=== PATIENT | female | born 1975 | race Hispanic/Latino ===

== ENCOUNTER 2019-02-10 14:12 | Inpatient (IN) | payer SELFPAY ==
[2019-02-10] MEDS ORDERED: Sodium Chloride 0.9% 1000 ML 1,000 ML IV STA ×3 (14:46→20:41)
[2019-02-10 15:12] LABS: BASOPHIL % 0.1 % (0.0-0.4); Basophil (Absolute #) 0.02 (0-0.4); Eosinophil % 0.1 % (0.00-5.0); Eosinophil (Absolute #) 0.02 (0-0.5); Granulocyte Absolute (ANC) 17.09 (1.4-6.9); Granulocytes % 87.5 % (36.0-66.0); Hemoglobin 14.8 gm/dl (12.0-16.0); Lymphocyte (Absolute #) 1.19 (1.0-4.6); Lymphocytes % 6.1 % (24.0-44.0); Mean Corpuscular Hgb Concent. 34.4 g/dl (32-36); Monocyte (Absolute #) 1.22 (0.0-1.3); Monocytes % 6.2 % (0.0-12.0); Platelet Count 185 K/mm3 (150-450); Red Blood Count 4.94 M/mm3 (4.1-5.4); Red Cell Distribution Width 12.8 % (11.5-14.0); White Blood Count 19.5 K/mm3 (4.0-10.5)
[2019-02-10] MEDS ORDERED: Sodium Chloride 0.9% 1000 ML 1,000 ML ONE ×2 (15:18→16:08)
[2019-02-10 15:30] LABS: Appearance SLIGHTLY CLOUDY (CLEAR); Bacteria RARE /HPF (NEGATIVE); Bilirubin NEGATIVE (NEGATIVE); Blood SMALL Ery/ul (0-5); Epithelial Cells RARE /HPF (FEW); Glucose >=500 mg/dL (NEGATIVE); Ketones NEGATIVE (NEGATIVE); Leukocyte Esterase MODERATE (NEGATIVE); Mucus SLIGHT /HPF (NEGATIVE); Nitrite NEGATIVE (NEGATIVE); Non-Squamous Epithelial Cells RARE /HPF (FEW); Protein,Urine Dip 100 (Negative); Specific Gravity 1.012 (1.005-1.025); Urobilinogen 2 mg/dL (0-1); WBC 26-50 /HPF (0-5)
[2019-02-10 15:41] LABS: ALBUMIN 4.4 g/dL (3.5-5.0); ALKALINE PHOSPHATASE 155 U/L (38-126); ANION GAP 15.6 MEQ/L (5-15); BLOOD UREA NITROGEN 13 mg/dL (7-17); CHLORIDE 103 mmol/L (98-107); Calcium 9.5 mg/dL (8.4-10.2); Carbon Dioxide 25 mmol/L (22-30); Creatinine 1 0.96 mg/dL (0.52-1.04); Glucose 213 mg/dL (74-106); MAGNESIUM 1.7 mg/dL (1.6-2.3); Potassium 3.6 mmol/L (3.5-5.1); SGOT/AST 62 U/L (14-36); SGPT/ALT 47 U/L (0-35); SODIUM 140 mmol/L (137-145); Total Protein 8.7 g/dL (6.3-8.2)
[2019-02-10] MEDS ORDERED: ROCEPHIN 1 Gm-D5w 50 ml Bag** 1 G/50 ML IVPB IV STA (16:07)
[2019-02-10] MEDS ORDERED: ROCEPHIN 1 Gm-D5w 50 ml Bag** 1 G/50 ML IVPB IV ONE (16:08)
[2019-02-10] MEDS ORDERED: TYLENOL EXTRA STRENGTH 500 MG PO STA (18:05)
[2019-02-10] MEDS ORDERED: TYLENOL EXTRA STRENGTH 500 MG ONE (18:09)
--- NOTE | 2019-02-10 18:21 | ERPHSYRPT ---
- History of Present Illness Source: patient Exam Limitations: language barrier Patient Subjective Stated Complaint: pt reports fever, headache, and feeling "shakey" for the last few days. pt reports she is out of her blood pressure medication as well as her oral medication for diabetes. Triage Nursing Assessment: pt is aox3, pupils perrl, febrile, resps easy and non labored, radial pulses strong and equal, cap refill < 3 seconds, pt appears diaphoretic. Physician History: Pt is a 43 y/o female that presented to the ED complaining of diaphoresis. Pt states, had subjective fever, but did not check how high it was. Pt states, was urinating several times at night, but denies dysuria. Pt denies diarrhea, but she did have vomiting episodes. No SOB or cough. Pt has a h/o HTN and DM II, but she did not have any meds for the last two months, and she has no PCP here. Timing/Duration: day(s) Severity: moderate Associated Symptoms: nausea, vomiting, diaphoresis, chills Allergies/Adverse Reactions: No Known Drug Allergies Allergy (Unverified 02/10/19 14:21) Hx Tetanus, Diphtheria Vaccination/Date Given: (unk) Hx Influenza Vaccination/Date Given: (unk) Hx Pneumococcal Vaccination/Date Given: (unk) Immunizations Up to Date: (unk) - Review of Systems Constitutional: Fever, Chills, Malaise, Night Sweats Eyes: No Symptoms Ears, Nose, & Throat: No Symptoms Respiratory: No Cough, No Dyspnea Abdominal/Gastrointestinal: Nausea, Vomiting Genitourinary Symptoms: Frequency Musculoskeletal: No Back Pain, No Neck Pain Neurological: No Dizziness, No Focal Weakness, No Sensory Changes - Past Medical History Pertinent Past Medical History: Yes Cardiac History: Hypertension Endocrine Medical History: Diabetes Type II GI Medical History: Gallbladder Disease - Past Surgical History Past Surgical History: Yes Gastrointestinal: Cholecystectomy Female Surgical History: Section - Social History Smoking Status: Never smoker Drug Use: none Patient Lives Alone: No - Female History Hx Now: No - Nursing Vital Signs Nursing Vital Signs: Initial Vital Signs Temperature 101 F 02/10/19 14:15 Pulse Rate 118 H 02/10/19 14:15 Respiratory Rate 20 02/10/19 14:15 Blood Pressure 141/122 02/10/19 14:15 O2 Sat by Pulse Oximetry 95 02/10/19 14:15 Pain Scale Pain Intensity 9 - Physical Exam General Appearance: moderate distress Eye Exam: PERRL/EOMI, eyes nml inspection Ears, Nose, Throat Exam: normal ENT inspection, TMs normal, pharynx normal, moist mucous membranes Neck Exam: normal inspection, non-tender, supple, full range of motion Respiratory Exam: normal breath sounds, lungs clear, No respiratory distress Cardiovascular Exam: regular rate/rhythm, normal heart sounds, normal peripheral pulses Gastrointestinal/Abdomen Exam: soft, normal bowel sounds, No tenderness, No mass Back Exam: normal inspection, normal range of motion, No CVA tenderness, No vertebral tenderness Extremity Exam: normal inspection, normal range of motion, pelvis stable Neurologic Exam: alert, oriented x 3, cooperative, normal mood/affect, nml cerebellar function, nml station & gait, sensation nml, No motor deficits Skin Exam: normal color, warm, dry, No rash SpO2 Interpretation: normal SpO2: 98 O2 Delivery: Room Air - Course Nursing assessment & vital signs reviewed: Yes - CT Exams Chest CT Interpretation: Tele-radiologist Report (No focal infiltrate. LAD calcifications, subsegmental atelectasis.) Ordered Tests: Active Orders 24 hr Category Date Time Status EKG-ER Only STAT Care 02/10/19 14:46 Active IV Insertion STAT Care 02/10/19 14:46 Active IV Insertion-2nd Peripheral STAT Care 02/10/19 16:18 Active CHEST 2 VIEWS (PA AND LAT) Stat Exams 02/10/19 16:49 Taken CHEST WITHOUT CONTRAST [CT] Stat Exams 02/10/19 16:07 Taken CBC W DIFF Stat Lab 02/10/19 15:09 Completed CMP Stat Lab 02/10/19 15:09 Completed CULTURE,URINE Stat Lab 02/10/19 15:09 Received Lactic Acid Urgent Lab 02/10/19 14:46 Completed MAGNESIUM Stat Lab 02/10/19 15:09 Completed TROPONIN Q3H Lab 02/10/19 15:09 Completed TROPONIN Q3H Lab 02/10/19 18:00 Ordered TROPONIN Q3H Lab 02/10/19 21:00 Ordered UA W/RFX UR CULTURE Stat Lab 02/10/19 15:09 Completed Medication Summary Discontinued Medications Generic Name Dose Route Start Last Admin Trade Name Freq PRN Reason Stop Dose Admin Acetaminophen 1,000 mg 02/10/19 18:05 02/10/19 18:10 Tylenol Extra Strength 500 Mg PO 02/10/19 18:06 1,000 mg STAT STA Administration Acetaminophen Confirm 02/10/19 18:09 Tylenol Extra Strength 500 Mg Administered 02/10/19 18:10 Dose 1,000 mg .ROUTE .STK-MED ONE Sodium Chloride 1,000 mls @ 999 mls/hr 02/10/19 14:46 02/10/19 16:25 Sodium Chloride 0.9% 1000 Ml IV 02/10/19 15:46 Infused .Q1H1M STA Infusion Sodium Chloride Confirm 02/10/19 15:18 Sodium Chloride 0.9% 1000 Ml Administered 02/10/19 15:19 Dose 1,000 mls @ ud .ROUTE .STK-MED ONE Ceftriaxone Sodium/Dextrose 1 g in 50 mls @ 100 mls/hr 02/10/19 16:07 16:50 Rocephin 1 Gm-D5w 50 Ml Bag IV 02/10/19 16:36 Infused STAT STA Infusion Sodium Chloride Confirm 02/10/19 16:08 Sodium Chloride 0.9% 1000 Ml Administered 02/10/19 16:09 Dose 1,000 mls @ ud .ROUTE .STK-MED ONE Ceftriaxone Sodium/Dextrose Confirm 02/10/19 16:08 Rocephin 1 Gm-D5w 50 Ml Bag Administered 02/10/19 16:09 Dose 1 g in 50 mls @ ud IV .STK-MED ONE Sodium Chloride 1,000 mls @ 999 mls/hr 02/10/19 16:25 02/10/19 17:43 Sodium Chloride 0.9% 1000 Ml IV 02/10/19 17:25 Infused .Q1H1M STA Infusion Lab/Rad Data: Laboratory Result Diagrams 02/10/19 15:09 02/10/19 15:09 Laboratory Results 02/10/19 02/10/19 02/10/19 Range/Units 15:09 15:09 15:09 WBC (4.0-10.5) K/mm3 RBC (4.1-5.4) M/mm3 Hgb (12.0-16.0) gm/dl Hct (35-47) % MCV (78-100) fl MCH (26-32) pg MCHC (32-36) g/dl RDW (11.5-14.0) % Plt Count (150-450) K/mm3 MPV (6-9.5) fl Gran % (36.0-66.0) % Eos # (Auto) (0-0.5) Absolute Lymphs (auto) (1.0-4.6) Absolute Monos (auto) (0.0-1.3) Lymphocytes % (24.0-44.0) % Monocytes % (0.0-12.0) % Eosinophils % (0.00-5.0) % Basophils % (0.0-0.4) % Absolute Granulocytes (1.4-6.9) Basophils # (0-0.4) Sodium 140 (137-145) mmol/L Potassium 3.6 (3.5-5.1) mmol/L Chloride 103 (98-107) mmol/L Carbon Dioxide 25 (22-30) mmol/L Anion Gap 15.6 H (5-15) MEQ/L BUN 13 (7-17) mg/dL Creatinine 0.96 (0.52-1.04) mg/dL Estimated GFR > 60.0 ML/MIN Glucose 213 H (74-106) mg/dL Lactic Acid (0.4-2.0) Calcium 9.5 (8.4-10.2) mg/dL Magnesium 1.7 (1.6-2.3) mg/dL Total Bilirubin 0.90 (0.2-1.3) mg/dL AST 62 H (14-36) U/L ALT 47 H (0-35) U/L Alkaline Phosphatase 155 H (38-126) U/L Troponin I < 0.012 (0.000-0.034) ng/mL Serum Total Protein 8.7 H (6.3-8.2) g/dL Albumin 4.4 (3.5-5.0) g/dL Urine Color YELLOW (YELLOW) Urine Appearance SLIGHTLY CLOUDY (CLEAR) Urine pH 7.0 (5-6) Ur Specific [place] 1.012 (1.005-1.025) Urine Protein 100 (Negative) Urine Ketones NEGATIVE (NEGATIVE) Urine Blood SMALL (0-5) Albert/ul Urine Nitrite NEGATIVE (NEGATIVE) Urine Bilirubin NEGATIVE (NEGATIVE) Urine Urobilinogen 2 (0-1) mg/dL Ur Leukocyte Esterase MODERATE (NEGATIVE) Urine WBC (Auto) 26-50 (0-5) /HPF Urine RBC (Auto) 3-5 (0-2) /HPF U Epithel Cells (Auto) RARE (FEW) /HPF Urine Bacteria (Auto) RARE (NEGATIVE) /HPF U Non-Squamous Epi Cells RARE (FEW) /HPF Other Casts (Auto) NEGATIVE (NEGATIVE) /LPF Urine Mucus (Auto) SLIGHT (NEGATIVE) /HPF Urine Culture Reflexed ORDERED SEPARATELY (NO) Urine Glucose >=500 (NEGATIVE) mg/dL 02/10/19 02/10/19 Range/Units 15:09 14:46 WBC 19.5 H (4.0-10.5) K/mm3 RBC 4.94 (4.1-5.4) M/mm3 Hgb 14.8 (12.0-16.0) gm/dl Hct 43.0 (35-47) % MCV 87.0 (78-100) fl MCH 30.0 (26-32) pg MCHC 34.4 (32-36) g/dl RDW 12.8 (11.5-14.0) % Plt Count 185 (150-450) K/mm3 MPV 13.0 H (6-9.5) fl Gran % 87.5 H (36.0-66.0) % Eos # (Auto) 0.02 (0-0.5) Absolute Lymphs (auto) 1.19 (1.0-4.6) Absolute Monos (auto) 1.22 (0.0-1.3) Lymphocytes % 6.1 L (24.0-44.0) % Monocytes % 6.2 (0.0-12.0) % Eosinophils % 0.1 (0.00-5.0) % Basophils % 0.1 (0.0-0.4) % Absolute Granulocytes 17.09 H (1.4-6.9) Basophils # 0.02 (0-0.4) Sodium (137-145) mmol/L Potassium (3.5-5.1) mmol/L Chloride (98-107) mmol/L Carbon Dioxide (22-30) mmol/L Anion Gap (5-15) MEQ/L BUN (7-17) mg/dL Creatinine (0.52-1.04) mg/dL Estimated GFR ML/MIN Glucose (74-106) mg/dL Lactic Acid 1.6 (0.4-2.0) Calcium (8.4-10.2) mg/dL Magnesium (1.6-2.3) mg/dL Total Bilirubin (0.2-1.3) mg/dL AST (14-36) U/L ALT (0-35) U/L Alkaline Phosphatase (38-126) U/L Troponin I (0.000-0.034) ng/mL Serum Total Protein (6.3-8.2) g/dL Albumin (3.5-5.0) g/dL Urine Color (YELLOW) Urine Appearance (CLEAR) Urine pH (5-6) Ur Specific [place] (1.005-1.025) Urine Protein (Negative) Urine Ketones (NEGATIVE) Urine Blood (0-5) Albert/ul Urine Nitrite (NEGATIVE) Urine Bilirubin (NEGATIVE) Urine Urobilinogen (0-1) mg/dL Ur Leukocyte Esterase (NEGATIVE) Urine WBC (Auto) (0-5) /HPF Urine RBC (Auto) (0-2) /HPF U Epithel Cells (Auto) (FEW) /HPF Urine Bacteria (Auto) (NEGATIVE) /HPF U Non-Squamous Epi Cells (FEW) /HPF Other Casts (Auto) (NEGATIVE) /LPF Urine Mucus (Auto) (NEGATIVE) /HPF Urine Culture Reflexed (NO) Urine Glucose (NEGATIVE) mg/dL - Progress Progress: improved Progress Note: 02/10/19 18:25 Pt was seen and examined. She had elevated WBCs of 19.5. and urine moderate leukocyte esterase and rare bacteria. Pt's BP dropped during her stay in the ER , and two liters of IVF given, just to get her to the SBPs of 100s. Lactate was normal. Pt got Ceftriaxone for her UTI. Pt got fed to see if she can tolerate it with no vomiting. Pt was discussed with Dr Estrella, that accepted pt to the ICU for admission, with hypotension. 02/10/19 18:38 Discussed with : Hunter Will see patient in: hospital (full admit) - Departure Departure Disposition: In-patient Admission Clinical Impression: Sepsis Condition: Fair Critical Care Time: No Referrals: Provider,Unknown [Primary Care Provider] - Additional Instructions: Pt will be admitted to the ICU for sepsis, and UTI. Dr Estrella is accepting.
[2019-02-10] MEDS ORDERED: NovoLOG Insulin SQ PRN (18:41)
[2019-02-10] MEDS ORDERED: Zofran 4 MG/2 ML VIAL IV PRN (18:41)
--- NOTE | 2019-02-10 19:31 | XRAY ---
Indication: Fever. Comparison: None PA/lateral chest demonstrates normal heart and lungs. Bony thorax intact with mild degenerative changes.
--- NOTE | 2019-02-10 19:31 | XRAY ---
Indication: Short of breath. Multiple contiguous axial images obtained through the chest without contrast as ordered. Comparison: None Lungs demonstrates minimal bilateral dependent atelectasis and minimal lingula subsegmental atelectasis/scarring. No suspicious pulmonary mass, infiltrate, consolidation, or effusion. Heart is not enlarged. Aorta is normal in course and caliber. No pathologic mediastinal lymphadenopathy. Bony thorax intact with mild degenerative changes throughout the spine. Limited upper abdomen demonstrates mild fatty liver. Impression: 1. Scattered atelectasis/scarring. No acute cardiopulmonary abnormalities on this noncontrast exam. 2. Fatty liver. Comment: Preliminary interpretation was made by [facility]. No critical discrepancy. CTDI 17.76
[2019-02-10] MEDS: Sodium Chloride 0.9% 1000 ML 1,000 ML IV SCH (20:36)
[2019-02-10] MEDS: NovoLOG Insulin SQ PRN (21:54)
[2019-02-11] MEDS: TYLENOL 325 MG PO PRN ×4 (01:47→22:24)
[2019-02-11 04:46] LABS: Hematocrit 34.2 % (35-47); Hemoglobin 11.4 gm/dl (12.0-16.0); Mean Cell Volume 88.8 fl (78-100); Mean Corpuscular Hemoglobin 29.6 pg (26-32); Mean Corpuscular Hgb Concent. 33.3 g/dl (32-36); Mean Platelet Volume 12.9 fl (6-9.5); Platelet Count 151 K/mm3 (150-450); Red Blood Count 3.85 M/mm3 (4.1-5.4); Red Cell Distribution Width 12.6 % (11.5-14.0)
[2019-02-11 04:57] LABS: White Blood Count 20.2 K/mm3 (4.0-10.5)
[2019-02-11 04:58] LABS: ALBUMIN 3.2 g/dL (3.5-5.0); ALKALINE PHOSPHATASE 117 U/L (38-126); ANION GAP 10.6 MEQ/L (5-15); BLOOD UREA NITROGEN 9 mg/dL (7-17); CHLORIDE 110 mmol/L (98-107); Calcium 7.9 mg/dL (8.4-10.2); Carbon Dioxide 23 mmol/L (22-30); Creatinine 1 0.65 mg/dL (0.52-1.04); Glucose 214 mg/dL (74-106); Potassium 3.3 mmol/L (3.5-5.1); SGOT/AST 32 U/L (14-36); SGPT/ALT 37 U/L (0-35); SODIUM 140 mmol/L (137-145); Total Protein 6.5 g/dL (6.3-8.2)
[2019-02-11] MEDS: Sodium Chloride 0.9% 1000 ML 1,000 ML IV SCH ×2 (08:04→20:04)
[2019-02-11] MEDS: NovoLOG Insulin SQ PRN ×4 (08:34→22:25)
[2019-02-11 08:43] LABS: BAND 11 % (0.0-2.0); Lymphocytes 6 % (24-44); Monocyte 7 % (0.0-12.0); Neutrophils 76 % (36.0-66.0); Platelet Estimate NORMAL (NORMAL); Total Cells Counted 100
[2019-02-11] MEDS ORDERED: Klor Con 10 MEQ PO ONE (08:59)
[2019-02-11] MEDS: ROCEPHIN 1 Gm-D5w 50 ml Bag** 1 G/50 ML IVPB IV SCH (09:15)
[2019-02-11] MEDS ORDERED: ENOXAPARIN SODIUM SQ SCH (10:00)
--- NOTE | 2019-02-11 12:19 | PCM.NOTE ---
Date and Time: 02/11/19 1213 Subjective Assessment: Product Safety Engineer used to talk with patient. She denies any dizziness, lightheadedness, nausea or vomiting or pain or dysuria and states she is feeling much better than when she came in. She was able to eat some breakfast this AM. She is concerned about when she will be discharged. She reports she does not have a way to get medications when she is discharged. I explained to her that we will have the development planner come see her concerning this. Objective Exam General Appearance: no apparent distress, other (significant other at bedside) Neurologic Exam: alert, cooperative Skin Exam: normal color, warm, dry, No rash Respiratory Exam: normal breath sounds, lungs clear, No respiratory distress, No crackles/rales, No rhonchi, No wheezing Cardiovascular Exam: regular rate/rhythm, No murmur, No friction rub, No gallop Gastrointestinal/Abdomen Exam: soft, normal bowel sounds, No tenderness, No distention, No mass Extremity Exam: other (no c/c/e) OBJECTIVE DATA Vital Signs: Vital Signs - 24 hr Temp Pulse Resp BP Pulse Ox 02/11/19 11:21 98.4 F 76 20 114/68 96 02/11/19 08:00 92 H 02/11/19 07:45 98.2 F 90 20 108/59 96 02/11/19 04:00 98.5 F 92 H 22 108/59 96 02/11/19 00:01 81 02/11/19 00:00 97.8 F 81 24 112/64 96 02/10/19 23:57 24 02/10/19 21:16 97.6 F 83 19 99/57 97 02/10/19 18:40 98 02/10/19 18:15 92 H 18 104/60 98 02/10/19 18:04 88 20 88/54 98 02/10/19 17:53 82 18 95/36 99 02/10/19 17:05 98/54 02/10/19 17:02 79 20 98/54 99 02/10/19 16:43 89 20 85/63 02/10/19 16:17 76 16 70/47 98 02/10/19 16:03 90 20 80/39 02/10/19 15:17 98 H 18 111/81 97 02/10/19 14:15 101 F 118 H 20 141/122 95 Pain Assessment - Last Documented Pain Intensity 6 Pain Scale Used 0-10 Pain Scale,FLACC Intake and Output: Intake & Output 02/09/19 02/10/19 02/11/19 02/12/19 06:59 06:59 06:59 06:59 Intake Total 2914 420 Output Total 2009 Balance 904 420 Weight 87 kg Lab Results: Accuchecks Date 02/10/19 Time 21:49 Accucheck Value: 214 Accucheck Value: 236 Lab Results-Last 24 Hours 02/10/19 02/10/19 02/10/19 Range/Units 14:46 15:09 15:09 WBC 19.5 H (4.0-10.5) K/mm3 RBC 4.94 (4.1-5.4) M/mm3 Hgb 14.8 (12.0-16.0) gm/dl Hct 43.0 (35-47) % MCV 87.0 (78-100) fl MCH 30.0 (26-32) pg MCHC 34.4 (32-36) g/dl RDW 12.8 (11.5-14.0) % Plt Count 185 (150-450) K/mm3 MPV 13.0 H (6-9.5) fl Gran % 87.5 H (36.0-66.0) % Eos # (Auto) 0.02 (0-0.5) Absolute Lymphs (auto) 1.19 (1.0-4.6) Absolute Monos (auto) 1.22 (0.0-1.3) Lymphocytes % 6.1 L (24.0-44.0) % Monocytes % 6.2 (0.0-12.0) % Eosinophils % 0.1 (0.00-5.0) % Basophils % 0.1 (0.0-0.4) % Absolute Granulocytes 17.09 H (1.4-6.9) Segmented Neutrophils (36.0-66.0) % Band Neutrophils (0.0-2.0) % Lymphocytes (Manual) (24-44) % Monocytes (Manual) (0.0-12.0) % Basophils # 0.02 (0-0.4) Platelet Estimate (NORMAL) RBC Morphology Sodium 140 (137-145) mmol/L Potassium 3.6 (3.5-5.1) mmol/L Chloride 103 (98-107) mmol/L Carbon Dioxide 25 (22-30) mmol/L Anion Gap 15.6 H (5-15) MEQ/L BUN 13 (7-17) mg/dL Creatinine 0.96 (0.52-1.04) mg/dL Estimated GFR > 60.0 ML/MIN Glucose 213 H (74-106) mg/dL Hemoglobin A1c (4.5-6.0) % Lactic Acid 1.6 (0.4-2.0) Calcium 9.5 (8.4-10.2) mg/dL Magnesium 1.7 (1.6-2.3) mg/dL Total Bilirubin 0.90 (0.2-1.3) mg/dL AST 62 H (14-36) U/L ALT 47 H (0-35) U/L Alkaline Phosphatase 155 H (38-126) U/L Troponin I (0.000-0.034) ng/mL Serum Total Protein 8.7 H (6.3-8.2) g/dL Albumin 4.4 (3.5-5.0) g/dL Urine Color (YELLOW) Urine Appearance (CLEAR) Urine pH (5-6) Ur Specific [place] (1.005-1.025) Urine Protein (Negative) Urine Ketones (NEGATIVE) Urine Blood (0-5) Albert/ul Urine Nitrite (NEGATIVE) Urine Bilirubin (NEGATIVE) Urine Urobilinogen (0-1) mg/dL Ur Leukocyte Esterase (NEGATIVE) Urine WBC (Auto) (0-5) /HPF Urine RBC (Auto) (0-2) /HPF U Epithel Cells (Auto) (FEW) /HPF Urine Bacteria (Auto) (NEGATIVE) /HPF U Non-Squamous Epi Cells (FEW) /HPF Other Casts (Auto) (NEGATIVE) /LPF Urine Mucus (Auto) (NEGATIVE) /HPF Urine Culture Reflexed (NO) Urine Glucose (NEGATIVE) mg/dL 02/10/19 02/10/19 02/10/19 Range/Units 15:09 15:09 18:00 WBC (4.0-10.5) K/mm3 RBC (4.1-5.4) M/mm3 Hgb (12.0-16.0) gm/dl Hct (35-47) % MCV (78-100) fl MCH (26-32) pg MCHC (32-36) g/dl RDW (11.5-14.0) % Plt Count (150-450) K/mm3 MPV (6-9.5) fl Gran % (36.0-66.0) % Eos # (Auto) (0-0.5) Absolute Lymphs (auto) (1.0-4.6) Absolute Monos (auto) (0.0-1.3) Lymphocytes % (24.0-44.0) % Monocytes % (0.0-12.0) % Eosinophils % (0.00-5.0) % Basophils % (0.0-0.4) % Absolute Granulocytes (1.4-6.9) Segmented Neutrophils (36.0-66.0) % Band Neutrophils (0.0-2.0) % Lymphocytes (Manual) (24-44) % Monocytes (Manual) (0.0-12.0) % Basophils # (0-0.4) Platelet Estimate (NORMAL) RBC Morphology Sodium (137-145) mmol/L Potassium (3.5-5.1) mmol/L Chloride (98-107) mmol/L Carbon Dioxide (22-30) mmol/L Anion Gap (5-15) MEQ/L BUN (7-17) mg/dL Creatinine (0.52-1.04) mg/dL Estimated GFR ML/MIN Glucose (74-106) mg/dL Hemoglobin A1c (4.5-6.0) % Lactic Acid (0.4-2.0) Calcium (8.4-10.2) mg/dL Magnesium (1.6-2.3) mg/dL Total Bilirubin (0.2-1.3) mg/dL AST (14-36) U/L ALT (0-35) U/L Alkaline Phosphatase (38-126) U/L Troponin I < 0.012 < 0.012 (0.000-0.034) ng/mL Serum Total Protein (6.3-8.2) g/dL Albumin (3.5-5.0) g/dL Urine Color YELLOW (YELLOW) Urine Appearance SLIGHTLY CLOUDY (CLEAR) Urine pH 7.0 (5-6) Ur Specific [place] 1.012 (1.005-1.025) Urine Protein 100 (Negative) Urine Ketones NEGATIVE (NEGATIVE) Urine Blood SMALL (0-5) Albert/ul Urine Nitrite NEGATIVE (NEGATIVE) Urine Bilirubin NEGATIVE (NEGATIVE) Urine Urobilinogen 2 (0-1) mg/dL Ur Leukocyte Esterase MODERATE (NEGATIVE) Urine WBC (Auto) 26-50 (0-5) /HPF Urine RBC (Auto) 3-5 (0-2) /HPF U Epithel Cells (Auto) RARE (FEW) /HPF Urine Bacteria (Auto) RARE (NEGATIVE) /HPF U Non-Squamous Epi Cells RARE (FEW) /HPF Other Casts (Auto) NEGATIVE (NEGATIVE) /LPF Urine Mucus (Auto) SLIGHT (NEGATIVE) /HPF Urine Culture Reflexed ORDERED SEPARATELY (NO) Urine Glucose >=500 (NEGATIVE) mg/dL 02/10/19 02/11/19 02/11/19 Range/Units 21:00 04:19 04:45 WBC 20.2 H (4.0-10.5) K/mm3 RBC 3.85 L (4.1-5.4) M/mm3 Hgb 11.4 L D (12.0-16.0) gm/dl Hct 34.2 L (35-47) % MCV 88.8 (78-100) fl MCH 29.6 (26-32) pg MCHC 33.3 (32-36) g/dl RDW 12.6 (11.5-14.0) % Plt Count 151 (150-450) K/mm3 MPV 12.9 H (6-9.5) fl Gran % (36.0-66.0) % Eos # (Auto) (0-0.5) Absolute Lymphs (auto) (1.0-4.6) Absolute Monos (auto) (0.0-1.3) Lymphocytes % (24.0-44.0) % Monocytes % (0.0-12.0) % Eosinophils % (0.00-5.0) % Basophils % (0.0-0.4) % Absolute Granulocytes (1.4-6.9) Segmented Neutrophils 76 H (36.0-66.0) % Band Neutrophils 11 H (0.0-2.0) % Lymphocytes (Manual) 6 L (24-44) % Monocytes (Manual) 7 (0.0-12.0) % Basophils # (0-0.4) Platelet Estimate NORMAL (NORMAL) RBC Morphology NORMAL Sodium (137-145) mmol/L Potassium (3.5-5.1) mmol/L Chloride (98-107) mmol/L Carbon Dioxide (22-30) mmol/L Anion Gap (5-15) MEQ/L BUN (7-17) mg/dL Creatinine (0.52-1.04) mg/dL Estimated GFR ML/MIN Glucose (74-106) mg/dL Hemoglobin A1c (4.5-6.0) % Lactic Acid 0.8 (0.4-2.0) Calcium (8.4-10.2) mg/dL Magnesium (1.6-2.3) mg/dL Total Bilirubin (0.2-1.3) mg/dL AST (14-36) U/L ALT (0-35) U/L Alkaline Phosphatase (38-126) U/L Troponin I < 0.012 (0.000-0.034) ng/mL Serum Total Protein (6.3-8.2) g/dL Albumin (3.5-5.0) g/dL Urine Color (YELLOW) Urine Appearance (CLEAR) Urine pH (5-6) Ur Specific [place] (1.005-1.025) Urine Protein (Negative) Urine Ketones (NEGATIVE) Urine Blood (0-5) Albert/ul Urine Nitrite (NEGATIVE) Urine Bilirubin (NEGATIVE) Urine Urobilinogen (0-1) mg/dL Ur Leukocyte Esterase (NEGATIVE) Urine WBC (Auto) (0-5) /HPF Urine RBC (Auto) (0-2) /HPF U Epithel Cells (Auto) (FEW) /HPF Urine Bacteria (Auto) (NEGATIVE) /HPF U Non-Squamous Epi Cells (FEW) /HPF Other Casts (Auto) (NEGATIVE) /LPF Urine Mucus (Auto) (NEGATIVE) /HPF Urine Culture Reflexed (NO) Urine Glucose (NEGATIVE) mg/dL 02/11/19 02/11/19 Range/Units 04:45 04:45 WBC (4.0-10.5) K/mm3 RBC (4.1-5.4) M/mm3 Hgb (12.0-16.0) gm/dl Hct (35-47) % MCV (78-100) fl MCH (26-32) pg MCHC (32-36) g/dl RDW (11.5-14.0) % Plt Count (150-450) K/mm3 MPV (6-9.5) fl Gran % (36.0-66.0) % Eos # (Auto) (0-0.5) Absolute Lymphs (auto) (1.0-4.6) Absolute Monos (auto) (0.0-1.3) Lymphocytes % (24.0-44.0) % Monocytes % (0.0-12.0) % Eosinophils % (0.00-5.0) % Basophils % (0.0-0.4) % Absolute Granulocytes (1.4-6.9) Segmented Neutrophils (36.0-66.0) % Band Neutrophils (0.0-2.0) % Lymphocytes (Manual) (24-44) % Monocytes (Manual) (0.0-12.0) % Basophils # (0-0.4) Platelet Estimate (NORMAL) RBC Morphology Sodium 140 (137-145) mmol/L Potassium 3.3 L (3.5-5.1) mmol/L Chloride 110 H (98-107) mmol/L Carbon Dioxide 23 (22-30) mmol/L Anion Gap 10.6 (5-15) MEQ/L BUN 9 (7-17) mg/dL Creatinine 0.65 (0.52-1.04) mg/dL Estimated GFR > 60.0 ML/MIN Glucose 214 H (74-106) mg/dL Hemoglobin A1c 9.16 H (4.5-6.0) % Lactic Acid (0.4-2.0) Calcium 7.9 L D (8.4-10.2) mg/dL Magnesium (1.6-2.3) mg/dL Total Bilirubin 0.90 (0.2-1.3) mg/dL AST 32 (14-36) U/L ALT 37 H (0-35) U/L Alkaline Phosphatase 117 (38-126) U/L Troponin I (0.000-0.034) ng/mL Serum Total Protein 6.5 (6.3-8.2) g/dL Albumin 3.2 L (3.5-5.0) g/dL Urine Color (YELLOW) Urine Appearance (CLEAR) Urine pH (5-6) Ur Specific [place] (1.005-1.025) Urine Protein (Negative) Urine Ketones (NEGATIVE) Urine Blood (0-5) Albert/ul Urine Nitrite (NEGATIVE) Urine Bilirubin (NEGATIVE) Urine Urobilinogen (0-1) mg/dL Ur Leukocyte Esterase (NEGATIVE) Urine WBC (Auto) (0-5) /HPF Urine RBC (Auto) (0-2) /HPF U Epithel Cells (Auto) (FEW) /HPF Urine Bacteria (Auto) (NEGATIVE) /HPF U Non-Squamous Epi Cells (FEW) /HPF Other Casts (Auto) (NEGATIVE) /LPF Urine Mucus (Auto) (NEGATIVE) /HPF Urine Culture Reflexed (NO) Urine Glucose (NEGATIVE) mg/dL Radiology Exams: Radiology Procedures Category Date Time Status CHEST 2 VIEWS (PA AND LAT) Stat Exams 02/10/19 16:49 Completed CHEST WITHOUT CONTRAST [CT] Stat Exams 02/10/19 16:07 Completed Assessment/Plan (1) Sepsis Current Visit: Yes Status: Resolved Qualifiers: Sepsis type: sepsis due to unspecified organism Assessment & Plan: Sepsis has resolved with ceftriaxone and IV fluids. Urine culture is growing a gram neg organism that has not been identified yet and blood cultures which were taken after antibiotics were given in ER are no growth to date. Her blood pressure has improved as well as her symptoms. Her lactic acid is now normal. Her WBC continues to be high. Will recheck this tomorrow. If she continues to do well and WBC is improving and she has a way to obtained prescriptions then discharge tomorrow may be an option. (2) UTI (urinary tract infection) Current Visit: Yes Status: Acute Assessment & Plan: Continue ceftriaxone Day 2. Code(s): N39.0 - URINARY TRACT INFECTION, SITE NOT SPECIFIED (3) Hypertension Current Visit: Yes Status: Acute Assessment & Plan: She is currently off her hypertensive medication secondary to low blood pressure due to sepsis that is resolving now. She does not have any blood pressure medication at home. Code(s): I10 - ESSENTIAL (PRIMARY) HYPERTENSION (4) Uncontrolled type 2 diabetes mellitus Current Visit: Yes Status: Acute Assessment & Plan: Her Hgb A1C is elevated. Will continue novolog sliding scale here and may need to add long acting insulin. She again states no way to obtain medication at home. Code(s): E11.65 - TYPE 2 DIABETES MELLITUS WITH HYPERGLYCEMIA (5) Elevated liver function tests Current Visit: Yes Status: Acute Assessment & Plan: Improved with fluids. Hepatitis panel was ordered yesterday. Code(s): R94.5 - ABNORMAL RESULTS OF LIVER FUNCTION STUDIES (6) DVT prophylaxis Current Visit: Yes Status: Acute Assessment & Plan: She is on lovenox for this. Code(s): Z29.9 - ENCOUNTER FOR PROPHYLACTIC MEASURES, UNSPECIFIED
[2019-02-12] MEDS ORDERED: Nitrostat 0.4 MG Tablet SL ONE (01:34)
[2019-02-12] MEDS ORDERED: Cardizem IV 50 MG/10 ML IV ONE ×5 (01:38→02:15)
[2019-02-12] MEDS ORDERED: LOPRESSOR 5 MG/5 ML INJECTION IV ONE ×4 (01:54→02:08)
[2019-02-12] MEDS ORDERED: CARDIZEM DRIP 100 MG/100 ML D5W 100 ML IV PRN (02:06)
[2019-02-12] MEDS ORDERED: CARDIZEM DRIP 100 MG/100 ML D5W 100 ML IV ONE (02:18)
[2019-02-12 02:25] LABS: Hematocrit 36.6 % (35-47); Hemoglobin 12.3 gm/dl (12.0-16.0); Mean Cell Volume 90.1 fl (78-100); Mean Corpuscular Hemoglobin 30.2 pg (26-32); Mean Corpuscular Hgb Concent. 33.6 g/dl (32-36); Mean Platelet Volume 12.6 fl (6-9.5); Platelet Count 182 K/mm3 (150-450); Red Blood Count 4.06 M/mm3 (4.1-5.4); Red Cell Distribution Width 13.1 % (11.5-14.0); White Blood Count 21.2 K/mm3 (4.0-10.5)
[2019-02-12 02:37] LABS: ALBUMIN 3.3 g/dL (3.5-5.0); ALKALINE PHOSPHATASE 164 U/L (38-126); BLOOD UREA NITROGEN 7 mg/dL (7-17); CHLORIDE 113 mmol/L (98-107); Calcium 8.2 mg/dL (8.4-10.2); Carbon Dioxide 21 mmol/L (22-30); Creatinine 1 0.68 mg/dL (0.52-1.04); Glucose 191 mg/dL (74-106); MAGNESIUM 1.8 mg/dL (1.6-2.3); NT PRO BNP 1200 pg/mL (0-450); Potassium 3.3 mmol/L (3.5-5.1); SGOT/AST 62 U/L (14-36); SGPT/ALT 35 U/L (0-35); SODIUM 142 mmol/L (137-145); TROPONIN < 0.012 ng/mL (0.000-0.034); Total Protein 6.8 g/dL (6.3-8.2)
[2019-02-12 02:38] LABS: ANION GAP 11 MEQ/L (5-15)
[2019-02-12] MEDS ORDERED: POTASSIUM CHLORIDE 20 mEq IN WATER 100ML 20 MEQ/100 ML BAG IV ONE (02:44)
[2019-02-12] MEDS: Zosyn 3.375GM/100 Ml D5W 3.375 GM/100 ML IVPB IV SCH (02:52)
[2019-02-12 02:53] LABS: BAND 2 % (0.0-2.0); Lymphocytes 9 % (24-44); Monocyte 2 % (0.0-12.0); Neutrophils 87 % (36.0-66.0); Total Cells Counted 100
[2019-02-12 02:54] LABS: Platelet Estimate NORMAL (NORMAL); Toxic Granulation RARE
[2019-02-12] MEDS ORDERED: ENOXAPARIN SODIUM SQ ONE (02:57)
[2019-02-12] MEDS ORDERED: Cordarone 150 MG/3 ML Injection IV ONE (03:32)
[2019-02-12] MEDS ORDERED: D5w 100ML Mini Bag 100 ML 100 ML IV ONE (03:37)
[2019-02-12] MEDS ORDERED: Lantus Insulin SQ ONE (04:00)
[2019-02-12] MEDS: POTASSIUM CHLORIDE 20 mEq IN WATER 100ML 20 MEQ/100 ML BAG IV SCH ×2 (04:15→06:40)
[2019-02-12] MEDS: NEXTERONE 360 MG/200 ML BAG 360 MG/200 ML PLAST..BAG IV SCH ×2 (04:27→10:20)
[2019-02-12 05:10] LABS: HEPATITIS A IGM Non Reactive (Non Reactive); HEPATITIS B VIRUS CORE TOT AB Non Reactive (Non Reactive); HEPATITIS C VIRUS ANTIBODY Non Reactive (Non Reactive); Hepatitis B Surface Ab.Quant. <3.50 mIU/mL (0.00-8.49); Hepatitis B Surface Antigen Non Reactive (Non Reactive)
[2019-02-12 05:40] LABS: Hematocrit 34.9 % (35-47); Hemoglobin 11.6 gm/dl (12.0-16.0); Mean Cell Volume 89.9 fl (78-100); Mean Corpuscular Hgb Concent. 33.2 g/dl (32-36); Mean Platelet Volume 13.2 fl (6-9.5); Platelet Count 167 K/mm3 (150-450); Red Blood Count 3.88 M/mm3 (4.1-5.4); Red Cell Distribution Width 13.1 % (11.5-14.0)
[2019-02-12 05:50] LABS: Mean Corpuscular Hemoglobin 29.8 pg (26-32)
[2019-02-12 06:01] LABS: ALBUMIN 3.1 g/dL (3.5-5.0); ALKALINE PHOSPHATASE 154 U/L (38-126); ANION GAP 11.8 MEQ/L (5-15); BLOOD UREA NITROGEN 7 mg/dL (7-17); CHLORIDE 111 mmol/L (98-107); Calcium 7.8 mg/dL (8.4-10.2); Carbon Dioxide 22 mmol/L (22-30); Creatinine 1 0.65 mg/dL (0.52-1.04); Glucose 238 mg/dL (74-106); Potassium 3.5 mmol/L (3.5-5.1); SGOT/AST 25 U/L (14-36); SGPT/ALT 32 U/L (0-35); SODIUM 141 mmol/L (137-145); Total Protein 6.6 g/dL (6.3-8.2)
[2019-02-12 06:07] LABS: Lymphocytes 9 % (24-44); Monocyte 2 % (0.0-12.0); Neutrophils 89 % (36.0-66.0); Total Cells Counted 100
[2019-02-12 06:09] LABS: Platelet Estimate NORMAL (NORMAL)
[2019-02-12] MEDS: Sodium Chloride 0.9% 1000 ML 1,000 ML IV SCH ×2 (06:37→17:55)
[2019-02-12] MEDS: NovoLOG Insulin SQ PRN ×2 (08:32→12:22)
[2019-02-12] MEDS ORDERED: Zosyn 3.375GM/100 Ml D5W 3.375 GM/100 ML IVPB IV SCH (09:00)
[2019-02-12] MEDS: ROCEPHIN 1 Gm-D5w 50 ml Bag** 1 G/50 ML IVPB IV SCH (10:23)
--- NOTE | 2019-02-12 14:59 | PCM.NOTE ---
Date and Time: 02/12/19 1444 Subjective Assessment: Patient is seen and examined today with her friend and the nurse ,Aleksander, present. Interprter services appreciated. Patient states prior to admission her only symptoms were dysuria and small frequent voids for several days ,developed headache and started Tylenol. Patient denies vaginal discharge or pain with intercourse. Denies N/V/D/ C.States no longer having symptoms of pain with urination,no abdominal pain or back pain.Appetite is good.No further SOB .No chest pain or palpitations. Objective Exam Neurologic Exam: alert, oriented x 3, cooperative Skin Exam: normal color, warm, dry Respiratory Exam: normal breath sounds, lungs clear Cardiovascular Exam: regular rate/rhythm, other (Tele- NSR rate 80s since converted at 0408 (Amiodorone started at 0330)) Gastrointestinal/Abdomen Exam: soft (nontender,no flank or CVA tenderness.No guarding or rebound.) Extremity Exam: other (no edema,neg homans) Back Exam: other (no CVA tenderness) OBJECTIVE DATA Vital Signs: Vital Signs - 24 hr Temp Pulse Resp BP Pulse Ox 02/12/19 12:30 88 20 119/60 98 02/12/19 12:00 97.8 F 82 24 116/79 98 02/12/19 11:00 83 27 H 116/79 99 02/12/19 09:00 83 22 121/70 97 02/12/19 08:00 98.7 F 73 24 95/72 98 02/12/19 07:00 98.7 F 73 24 95/72 98 02/12/19 06:00 78 23 95/65 97 02/12/19 05:00 82 21 99/72 98 02/12/19 04:20 99.9 F 78 21 105/74 98 02/12/19 04:00 21 02/12/19 03:40 120 H 21 83/56 98 02/12/19 02:22 121 H 24 95/59 100 02/12/19 02:13 132 H 25 H 102/60 100 02/12/19 02:02 155 H 96 H 107/70 02/12/19 01:43 180 H 23 148/131 98 02/12/19 01:30 161/141 02/12/19 00:00 96 H 02/11/19 23:53 99.8 F 90 18 83/53 97 02/11/19 20:00 18 02/11/19 19:53 99.6 F 93 H 18 83/44 93 L 02/11/19 16:02 100.2 F 78 20 118/68 97 Oxygen-Last 24 hours O2 Percentage 2 Liters = 28% O2 Percentage 2 Liters = 28% O2 Percentage 2 Liters = 28% O2 Percentage 2 Liters = 28% O2 Percentage 2 Liters = 28% O2 Percentage 2 Liters = 28% O2 Percentage 2 Liters = 28% O2 Percentage 2 Liters = 28% O2 Percentage 2 Liters = 28% O2 Percentage 2 Liters = 28% Oxygen Flowrate (L/min)-RT 2 Oxygen Flowrate (L/min)-RT 2 Oxygen Flowrate (L/min)-RT 2 Oxygen Flowrate (L/min)-RT 2 Pain Assessment - Last Documented Pain Intensity 0 Pain Scale Used 0-10 Pain Scale Intake and Output: Intake & Output 02/10/19 02/11/19 02/12/19 02/13/19 11:59 11:59 11:59 11:59 Intake Total 3334 3772 Output Total 2009 1800 Balance 1324 1972 Weight 87 kg Lab Results: Accuchecks Date 02/11/19 Time 21:30 Accucheck Value: 236 Accucheck Value: 241 Accucheck Value: 251 Accucheck Value: 242 Lab Results-Last 24 Hours 02/10/19 02/12/19 02/12/19 Range/Units 22:17 02:23 02:23 WBC 21.2 H (4.0-10.5) K/mm3 RBC 4.06 L (4.1-5.4) M/mm3 Hgb 12.3 (12.0-16.0) gm/dl Hct 36.6 (35-47) % MCV 90.1 (78-100) fl MCH 30.2 (26-32) pg MCHC 33.6 (32-36) g/dl RDW 13.1 (11.5-14.0) % Plt Count 182 (150-450) K/mm3 MPV 12.6 H (6-9.5) fl Segmented Neutrophils 87 H (36.0-66.0) % Band Neutrophils 2 (0.0-2.0) % Lymphocytes (Manual) 9 L (24-44) % Monocytes (Manual) 2 (0.0-12.0) % Toxic Granulation RARE Platelet Estimate NORMAL (NORMAL) RBC Morphology NORMAL D-Dimer 2198 H* (215-500) ng/mL Sodium (137-145) mmol/L Potassium (3.5-5.1) mmol/L Chloride (98-107) mmol/L Carbon Dioxide (22-30) mmol/L Anion Gap (5-15) MEQ/L BUN (7-17) mg/dL Creatinine (0.52-1.04) mg/dL Estimated GFR ML/MIN Glucose (74-106) mg/dL Calcium (8.4-10.2) mg/dL Magnesium (1.6-2.3) mg/dL Total Bilirubin (0.2-1.3) mg/dL AST (14-36) U/L ALT (0-35) U/L Alkaline Phosphatase (38-126) U/L Troponin I (0.000-0.034) ng/mL NT-Pro-B Natriuret Pep (0-450) pg/mL Serum Total Protein (6.3-8.2) g/dL Albumin (3.5-5.0) g/dL TSH 3rd Generation (0.47-4.68) mIU/L Urine HCG, Qual (Negative) Hepatitis A IgM Ab Non Reactive (Non Reactive) Hep Bs Antigen Non Reactive (Non Reactive) Hep Bs Antibody, Quant <3.50 (0.00-8.49) mIU/mL Hep B Core Total Ab Non Reactive (Non Reactive) Hepatitis C Antibody Non Reactive (Non Reactive) 02/12/19 02/12/19 02/12/19 Range/Units 02:23 02:37 03:01 WBC (4.0-10.5) K/mm3 RBC (4.1-5.4) M/mm3 Hgb (12.0-16.0) gm/dl Hct (35-47) % MCV (78-100) fl MCH (26-32) pg MCHC (32-36) g/dl RDW (11.5-14.0) % Plt Count (150-450) K/mm3 MPV (6-9.5) fl Segmented Neutrophils (36.0-66.0) % Band Neutrophils (0.0-2.0) % Lymphocytes (Manual) (24-44) % Monocytes (Manual) (0.0-12.0) % Toxic Granulation Platelet Estimate (NORMAL) RBC Morphology D-Dimer (215-500) ng/mL Sodium 142 (137-145) mmol/L Potassium 3.3 L (3.5-5.1) mmol/L Chloride 113 H (98-107) mmol/L Carbon Dioxide 21 L (22-30) mmol/L Anion Gap 11 (5-15) MEQ/L BUN 7 (7-17) mg/dL Creatinine 0.68 (0.52-1.04) mg/dL Estimated GFR > 60.0 ML/MIN Glucose 191 H (74-106) mg/dL Calcium 8.2 L (8.4-10.2) mg/dL Magnesium 1.8 (1.6-2.3) mg/dL Total Bilirubin 0.70 (0.2-1.3) mg/dL AST 62 H (14-36) U/L ALT 35 (0-35) U/L Alkaline Phosphatase 164 H (38-126) U/L Troponin I < 0.012 (0.000-0.034) ng/mL NT-Pro-B Natriuret Pep 1200 H (0-450) pg/mL Serum Total Protein 6.8 (6.3-8.2) g/dL Albumin 3.3 L (3.5-5.0) g/dL TSH 3rd Generation 4.290 (0.47-4.68) mIU/L Urine HCG, Qual NEGATIVE (Negative) Hepatitis A IgM Ab (Non Reactive) Hep Bs Antigen (Non Reactive) Hep Bs Antibody, Quant (0.00-8.49) mIU/mL Hep B Core Total Ab (Non Reactive) Hepatitis C Antibody (Non Reactive) 02/12/19 02/12/19 02/12/19 Range/Units 05:10 05:10 05:15 WBC 23.0 H (4.0-10.5) K/mm3 RBC 3.88 L (4.1-5.4) M/mm3 Hgb 11.6 L (12.0-16.0) gm/dl Hct 34.9 L (35-47) % MCV 89.9 (78-100) fl MCH 29.8 (26-32) pg MCHC 33.2 (32-36) g/dl RDW 13.1 (11.5-14.0) % Plt Count 167 (150-450) K/mm3 MPV 13.2 H (6-9.5) fl Segmented Neutrophils 89 H (36.0-66.0) % Band Neutrophils (0.0-2.0) % Lymphocytes (Manual) 9 L (24-44) % Monocytes (Manual) 2 (0.0-12.0) % Toxic Granulation Platelet Estimate NORMAL (NORMAL) RBC Morphology NORMAL D-Dimer (215-500) ng/mL Sodium 141 (137-145) mmol/L Potassium 3.5 (3.5-5.1) mmol/L Chloride 111 H (98-107) mmol/L Carbon Dioxide 22 (22-30) mmol/L Anion Gap 11.8 (5-15) MEQ/L BUN 7 (7-17) mg/dL Creatinine 0.65 (0.52-1.04) mg/dL Estimated GFR > 60.0 ML/MIN Glucose 238 H (74-106) mg/dL Calcium 7.8 L (8.4-10.2) mg/dL Magnesium (1.6-2.3) mg/dL Total Bilirubin 0.90 (0.2-1.3) mg/dL AST 25 (14-36) U/L ALT 32 (0-35) U/L Alkaline Phosphatase 154 H (38-126) U/L Troponin I < 0.012 (0.000-0.034) ng/mL NT-Pro-B Natriuret Pep (0-450) pg/mL Serum Total Protein 6.6 (6.3-8.2) g/dL Albumin 3.1 L (3.5-5.0) g/dL TSH 3rd Generation (0.47-4.68) mIU/L Urine HCG, Qual (Negative) Hepatitis A IgM Ab (Non Reactive) Hep Bs Antigen (Non Reactive) Hep Bs Antibody, Quant (0.00-8.49) mIU/mL Hep B Core Total Ab (Non Reactive) Hepatitis C Antibody (Non Reactive) 02/12/19 Range/Units 11:57 WBC (4.0-10.5) K/mm3 RBC (4.1-5.4) M/mm3 Hgb (12.0-16.0) gm/dl Hct (35-47) % MCV (78-100) fl MCH (26-32) pg MCHC (32-36) g/dl RDW (11.5-14.0) % Plt Count (150-450) K/mm3 MPV (6-9.5) fl Segmented Neutrophils (36.0-66.0) % Band Neutrophils (0.0-2.0) % Lymphocytes (Manual) (24-44) % Monocytes (Manual) (0.0-12.0) % Toxic Granulation Platelet Estimate (NORMAL) RBC Morphology D-Dimer (215-500) ng/mL Sodium (137-145) mmol/L Potassium 3.8 (3.5-5.1) mmol/L Chloride (98-107) mmol/L Carbon Dioxide (22-30) mmol/L Anion Gap (5-15) MEQ/L BUN (7-17) mg/dL Creatinine (0.52-1.04) mg/dL Estimated GFR ML/MIN Glucose (74-106) mg/dL Calcium (8.4-10.2) mg/dL Magnesium (1.6-2.3) mg/dL Total Bilirubin (0.2-1.3) mg/dL AST (14-36) U/L ALT (0-35) U/L Alkaline Phosphatase (38-126) U/L Troponin I (0.000-0.034) ng/mL NT-Pro-B Natriuret Pep (0-450) pg/mL Serum Total Protein (6.3-8.2) g/dL Albumin (3.5-5.0) g/dL TSH 3rd Generation (0.47-4.68) mIU/L Urine HCG, Qual (Negative) Hepatitis A IgM Ab (Non Reactive) Hep Bs Antigen (Non Reactive) Hep Bs Antibody, Quant (0.00-8.49) mIU/mL Hep B Core Total Ab (Non Reactive) Hepatitis C Antibody (Non Reactive) Radiology Exams: Radiology Procedures Category Date Time Status CHEST 2 VIEWS (PA AND LAT) Stat Exams 02/10/19 16:49 Completed CHEST WITHOUT CONTRAST [CT] Stat Exams 02/10/19 16:07 Completed Assessment/Plan (1) Elevated WBC count Current Visit: Yes Status: Acute Assessment & Plan: urine culture + E.Coli see Sens report. IV meds changed to IV Levaquin. Code(s): D72.829 - ELEVATED WHITE BLOOD CELL COUNT, UNSPECIFIED (2) Sepsis Current Visit: Yes Status: Resolved Qualifiers: Sepsis type: sepsis due to unspecified organism Assessment & Plan: blood cultures no growth X 2 (3) Atrial fibrillation with rapid ventricular response Current Visit: Yes Status: Acute Assessment & Plan: A fib resolved after 38min on Amiodorone drip. Rn Midwife consulted today and rec stop drip and start Oral Amiodarone 200mg daily ,ECHO, anticoagulate with Eliquis 5mg BID since TANVIR-Vasc score = 3. Shaila ECHO for tomorrow. Hopefully patient can follow up at [facility] [phone]. Code(s): I48.91 - UNSPECIFIED ATRIAL FIBRILLATION
[2019-02-12] MEDS: ENOXAPARIN SODIUM SQ SCH (15:32)
[2019-02-12] MEDS: Cordarone 200 MG PO SCH (16:08)
[2019-02-12] MEDS: TYLENOL 325 MG PO PRN (17:16)
[2019-02-12] MEDS: LEVOFLOXACIN 750MG/150ML D5W 750 MG/150 ML BAG IV SCH (21:25)
[2019-02-13 05:02] LABS: Hematocrit 31.2 % (35-47); Hemoglobin 10.2 gm/dl (12.0-16.0); Mean Cell Volume 89.7 fl (78-100); Mean Corpuscular Hemoglobin 29.3 pg (26-32); Mean Corpuscular Hgb Concent. 32.7 g/dl (32-36); Mean Platelet Volume 12.7 fl (6-9.5); Platelet Count 195 K/mm3 (150-450); Red Blood Count 3.48 M/mm3 (4.1-5.4)
[2019-02-13] MEDS: Sodium Chloride 0.9% 1000 ML 1,000 ML IV SCH ×2 (05:32→07:31)
[2019-02-13] MEDS: ENOXAPARIN SODIUM SQ SCH ×2 (05:33→15:46)
[2019-02-13 05:35] LABS: ALBUMIN 3.1 g/dL (3.5-5.0); ALKALINE PHOSPHATASE 155 U/L (38-126); ANION GAP 11.2 MEQ/L (5-15); BLOOD UREA NITROGEN 6 mg/dL (7-17); CHLORIDE 112 mmol/L (98-107); Calcium 8.1 mg/dL (8.4-10.2); Carbon Dioxide 23 mmol/L (22-30); Creatinine 1 0.61 mg/dL (0.52-1.04); Glucose 200 mg/dL (74-106); Potassium 3.8 mmol/L (3.5-5.1); SGOT/AST 23 U/L (14-36); SGPT/ALT 29 U/L (0-35); SODIUM 142 mmol/L (137-145); Total Protein 6.5 g/dL (6.3-8.2)
[2019-02-13] MEDS: Zosyn 3.375GM/100 Ml D5W 3.375 GM/100 ML IVPB IV SCH (06:35)
[2019-02-13 07:08] LABS: BAND 2 % (0.0-2.0); Eosinophil 1 % (0.00-3.0); Lymphocytes 13 % (24-44); Monocyte 1 % (0.0-12.0); Neutrophils 83 % (36.0-66.0); Platelet Estimate NORMAL (NORMAL); Total Cells Counted 100; Toxic Granulation 1+
[2019-02-13] MEDS: NEXTERONE 360 MG/200 ML BAG 360 MG/200 ML PLAST..BAG IV SCH (07:33)
[2019-02-13] MEDS: Lantus Insulin SQ SCH (07:45)
--- NOTE | 2019-02-13 08:07 | HP ---
HISTORY OF PRESENT ILLNESS: This is a 43 year-old lady who presented to the emergency department. She reports that for three days she has had fever, headache and body ache, and for four to five days has had a burning sensation when urinating. She also had nausea but no vomiting. She reports she is feeling better since she came into the emergency department. She has history of diabetes, high blood pressure, hyperlipidemia but has not been able to take her medications for two months because she has not had any medications. She does not check her blood sugars at home. She said that she thinks she has a headache because she was not able to eat for quite a while because she was not feeling well. REVIEW OF SYSTEMS: No cough. No rhinorrhea. No chest pain. No abdominal pain. No rashes. She denies any recent travel. MEDICATIONS: Losartan, Metformin. ALLERGIES: NKDA. PAST MEDICAL HISTORY: Hypertension. Diabetes mellitus type 2. Hyperlipidemia. PAST SURGICAL HISTORY: Cholecystectomy. SOCIAL HISTORY: She denies any tobacco or alcohol use. She lives with significant other and two other people. She speaks [place]. Her history was taken via the airport shuttle driver. LAB DATA AND TESTS: Her white blood cell count was 19,500 with 87% granulocytes, glucose 213, AST 62, ALT 47, alkaline phosphatase 115, protein 8.7. UA with 26 to 50 white blood cells, 3 to 5 red blood cells. She has urine culture and blood culture in lab. The blood cultures were drawn after her first dose of antibiotics. She had a chest CT without contrast with no acute findings. Please see the radiologist dictation for the full report. Chest x-ray that was within normal limits. Please see the radiologist dictation for the full report. PHYSICAL EXAMINATION: VITAL SIGNS: Temperature current 101F, temperature max 101F, heart rate 92 , respiratory rate 18, blood pressure 70 to 141 over 39 to 122 currently 104/60. Oxygen saturation 98% on room air. GENERAL: The patient is a pleasant talkative lady lying in bed in no acute distress with significant other at the bedside. CVS: She has a regular rate and rhythm. No murmurs, gallops or rubs. CHEST: Clear to auscultation bilaterally. No crackles or wheezes are appreciated. ABDOMEN: Soft, nontender, nondistended with normal bowel sounds. EXTREMITIES: No clubbing, cyanosis or edema. SKIN: Warm, dry and intact and without rashes. NEURO: Cranial nerves II-XII are intact. Strength is 5/5 in all four extremities. Normal finger to nose bilaterally. ASSESSMENT AND PLAN: 1) SEPSIS: She was given 2 liters of normal saline in the emergency room for low blood pressure and I have ordered another liter of normal saline for her. She may need a couple more liters if her blood pressure does not stay above a mean arterial pressure of 60. She has been started on ceftriaxone. Urine culture has been taken. The blood cultures were taken after her first dose of ceftriaxone. Will continue with close monitoring in the ICU bed. The patient's questions were answered. Will recheck blood work in the morning. 2) URINARY TRACT INFECTION: Will continue with ceftriaxone as above. 3) HYPERTENSION: Currently she is hypotensive. She reports she has not taken her blood pressure medicine for two months. 4) DIABETES MELLITUS TYPE 2: Will check Hemoglobin A1C and use a low dose sliding scale of NovoLog. 5) DEEP VENOUS THROMBOSIS PROPHYLAXIS: Will use Lovenox. 6) ELEVATED LIVER FUNCTION TEST: Will check hepatitis panel. I did not that she had a fatty liver on her chest CT so this could be the reason for her elevated liver function test.
--- NOTE | 2019-02-13 09:13 | PCM.NOTE ---
Date and Time: 02/13/19912 Subjective Assessment: Booking Clerk over ipad device was used to communicate with patient. Patient denies chest pain or shortness of breath. She did feel like she had a fever last night and took medication which made it better. She denies any abdominal pain. We discussed risks and benefits of Eliquis. I asked if she had periods any more and she said no. She voices that she would like to go home soon. She has not had any lower extremity edema. No pain with urination. She has had a good appetite. - Review of Systems Constitutional: No Symptoms Eyes: No Symptoms Respiratory: No Symptoms Cardiac: No Symptoms Abdominal/Gastrointestinal: No Symptoms Genitourinary Symptoms: No Symptoms Musculoskeletal: No Symptoms Objective Exam General Appearance: no apparent distress, other (significant other present) Neurologic Exam: alert Skin Exam: normal color, warm, dry, No rash Respiratory Exam: normal breath sounds, lungs clear, No crackles/rales, No rhonchi, No wheezing Cardiovascular Exam: regular rate/rhythm, normal heart sounds, No friction rub, No gallop, No tachycardia Gastrointestinal/Abdomen Exam: soft, normal bowel sounds, No tenderness, No distention, No mass, No guarding Extremity Exam: other (no c/c/e) OBJECTIVE DATA Vital Signs: Vital Signs - 24 hr Temp Pulse Resp BP Pulse Ox 02/13/19 07:53 19 02/13/19 07:43 98.6 F 28 H 142/83 97 02/13/19 04:00 99 F 79 26 H 137/77 97 02/13/19 00:00 23 02/12/19 23:59 99.4 F 80 23 132/81 99 02/12/19 20:00 99.2 F 82 26 H 112/70 98 02/12/19 19:00 82 27 H 112/70 97 02/12/19 18:00 100.9 F 88 17 158/96 95 02/12/19 16:48 99.3 F 85 28 H 131/75 97 02/12/19 16:00 84 29 H 135/72 97 02/12/19 14:57 81 20 131/85 99 02/12/19 12:30 88 20 119/60 98 02/12/19 12:00 97.8 F 82 24 116/79 98 02/12/19 11:00 83 27 H 116/79 99 Oxygen-Last 24 hours O2 Percentage 2 Liters = 28% O2 Percentage 2 Liters = 28% O2 Percentage 2 Liters = 28% O2 Percentage 2 Liters = 28% O2 Percentage 2 Liters = 28% O2 Percentage 2 Liters = 28% O2 Percentage 2 Liters = 28% O2 Percentage 2 Liters = 28% Pain Assessment - Last Documented Pain Intensity 0 Pain Scale Used 0-10 Pain Scale Intake and Output: Intake & Output 02/11/19 02/12/19 02/13/19 02/14/19 06:59 06:59 06:59 06:59 Intake Total 2914 4192 2957 Output Total 2009 1799 Balance 904 8832 2957 Weight 87 kg 102 kg 101 kg Lab Results: Accuchecks Accucheck Value: 195 Accucheck Value: 186 Accucheck Value: 236 Lab Results-Last 24 Hours 02/12/19 02/13/19 02/13/19 Range/Units 11:57 04:20 04:20 WBC 14.0 H (4.0-10.5) K/mm3 RBC 3.48 L (4.1-5.4) M/mm3 Hgb 10.2 L (12.0-16.0) gm/dl Hct 31.2 L (35-47) % MCV 89.7 (78-100) fl MCH 29.3 (26-32) pg MCHC 32.7 (32-36) g/dl RDW 13.0 (11.5-14.0) % Plt Count 195 (150-450) K/mm3 MPV 12.7 H (6-9.5) fl Segmented Neutrophils 83 H (36.0-66.0) % Band Neutrophils 2 (0.0-2.0) % Lymphocytes (Manual) 13 L (24-44) % Monocytes (Manual) 1 (0.0-12.0) % Eosinophils (Manual) 1 (0.00-3.0) % Toxic Granulation 1+ Platelet Estimate NORMAL (NORMAL) RBC Morphology NORMAL Sodium 142 (137-145) mmol/L Potassium 3.8 3.8 (3.5-5.1) mmol/L Chloride 112 H (98-107) mmol/L Carbon Dioxide 23 (22-30) mmol/L Anion Gap 11.2 (5-15) MEQ/L BUN 6 L (7-17) mg/dL Creatinine 0.61 (0.52-1.04) mg/dL Estimated GFR > 60.0 ML/MIN Glucose 200 H (74-106) mg/dL Calcium 8.1 L (8.4-10.2) mg/dL Total Bilirubin 0.50 (0.2-1.3) mg/dL AST 23 (14-36) U/L ALT 29 (0-35) U/L Alkaline Phosphatase 155 H (38-126) U/L Serum Total Protein 6.5 (6.3-8.2) g/dL Albumin 3.1 L (3.5-5.0) g/dL Radiology Exams: Radiology Procedures Category Date Time Status ECHO W/2D AND DOPPLER [US] Routine Exams 02/13/19 Ordered Assessment/Plan (1) Paroxysmal atrial fibrillation Current Visit: Yes Status: Acute Assessment & Plan: Currently in sinus rhythm. She had been in a. fib with RVR and required diltiazem drip and boluses along with metoprolol. We then had switched her to amiodarone drip and she converted back to sinus rhythm and has stayed in sinus rhythm. Plan for tele cardiology consult today. They have recommended over the phone to give Eliquis for anticoagulation to prevent stroke and also continue oral amiodarone which she was changed to yesterday afternoon. I discussed with her signs of bleeding and that she does have a higher risk of bleeding on Eliquis or any blood thinnner but that I think the benefit (stroke prevention) of being on Eliquis out weighs the risk. She is to go to doctor or ER if she has blood in her urine, blood in stool or dark black stools, heavy menstrual bleeding. I recommended she not climb any heights as she would be at higher risk of bleeding inside her brain if she fell and she would probably notice that she would bleed easier if cut and bruise more easily. She expressed through the pin maker that she understood and her questions were answered. I discussed that she needed to take the blood thinner as prescribed and not miss doses. I explained that it would be bid and she should try to take the doses about 12 hours apart. She is currently on Lovenox for anticoagulation. Code(s): I48.0 - PAROXYSMAL ATRIAL FIBRILLATION (2) Sepsis Current Visit: Yes Status: Resolved Qualifiers: Sepsis type: Escherichia coli Assessment & Plan: Her urine culture grew E.coli that is susceptible to all the antibiotics that we used. We started with ceftriaxone and I added Zosyn on 02/12/19. On 02/12/19 she was changed to levofloxacin and the ceftriaxone and Zosyn were stopped by Dr. Cm. Her WBC has improved now. Will recheck again tomorrow. Her blood pressure is stable. She has a good appetite. (3) UTI (urinary tract infection) Current Visit: Yes Status: Acute Assessment & Plan: Continue levofloxacin and plan to finish course of antibiotics as an outpatient when she is discharged. Day 3 of antibiotics (started at admission) Code(s): N39.0 - URINARY TRACT INFECTION, SITE NOT SPECIFIED (4) Hypertension Current Visit: Yes Status: Acute Assessment & Plan: Currently off medication and stable at this time. She reported she had been on an arb in the past. Code(s): I10 - ESSENTIAL (PRIMARY) HYPERTENSION (5) Uncontrolled type 2 diabetes mellitus Current Visit: Yes Status: Acute Assessment & Plan: Continue lantus and sliding scale. Will need to make sure she has machine to check her blood glucose when she is discharged and will plan to restart metformin which she has taken before when she is discharged. Code(s): E11.65 - TYPE 2 DIABETES MELLITUS WITH HYPERGLYCEMIA (6) Elevated liver function tests Current Visit: Yes Status: Acute Code(s): R94.5 - ABNORMAL RESULTS OF LIVER FUNCTION STUDIES (7) DVT prophylaxis Current Visit: Yes Status: Acute Assessment & Plan: She is on anticoagulation doses of lovenox. Code(s): Z29.9 - ENCOUNTER FOR PROPHYLACTIC MEASURES, UNSPECIFIED
[2019-02-13] MEDS: Cordarone 200 MG PO SCH (09:54)
[2019-02-13] MEDS: NovoLOG Insulin SQ PRN ×2 (12:03→21:17)
[2019-02-13] MEDS: LEVOFLOXACIN 750MG/150ML D5W 750 MG/150 ML BAG IV SCH (21:16)
[2019-02-13] MEDS ORDERED: ENOXAPARIN SODIUM SQ SCH (21:16)
[2019-02-14] MEDS ORDERED: ENOXAPARIN SODIUM SQ SCH (04:00)
[2019-02-14 04:22] VITALS: O2SAT 95
[2019-02-14 06:06] LABS: Hematocrit 31.9 % (35-47); Hemoglobin 10.7 gm/dl (12.0-16.0); Mean Cell Volume 89.6 fl (78-100); Mean Corpuscular Hgb Concent. 33.5 g/dl (32-36); Mean Platelet Volume 12.1 fl (6-9.5); Platelet Count 227 K/mm3 (150-450); Red Blood Count 3.56 M/mm3 (4.1-5.4); Red Cell Distribution Width 12.8 % (11.5-14.0); White Blood Count 9.8 K/mm3 (4.0-10.5)
[2019-02-14 06:17] LABS: ANION GAP 10.9 MEQ/L (5-15); BLOOD UREA NITROGEN 6 mg/dL (7-17); CHLORIDE 108 mmol/L (98-107); Calcium 8.6 mg/dL (8.4-10.2); Carbon Dioxide 25 mmol/L (22-30); Creatinine 1 0.61 mg/dL (0.52-1.04); Glucose 205 mg/dL (74-106); Potassium 3.4 mmol/L (3.5-5.1); SODIUM 140 mmol/L (137-145)
[2019-02-14 06:46] LABS: Lymphocytes 23 % (24-44); Monocyte 3 % (0.0-12.0); Neutrophils 74 % (36.0-66.0); Platelet Estimate NORMAL (NORMAL); Total Cells Counted 100
[2019-02-14] MEDS: Lantus Insulin SQ SCH (08:17)
--- NOTE | 2019-02-14 08:19 | ECHO ---
DATE OF PROCEDURE: 02/13/2019 CLINICAL INFORMATION: Atrial fibrillation. The M-mode 2D, and Doppler echocardiogram including color flow Doppler shows the left ventricle is normal in size at 4.9 cm. There is no thrombus present. The septal wall thickness is increased at 1.7 cm. The left ventricular posterior wall thickness is normal at 1.1 cm. There is accentuated contractility of the left ventricle with an ejection fraction calculated at 73%. The mitral valve E to A inflow velocity ratio is decreased at 0.9 consistent with impaired left ventricular relaxation. The right ventricle is grossly normal. The left atrium is normal at 3.9 cm. The interatrial septum is intact. The right atrium is normal. The aortic valve opens well. There is no aortic regurgitation present. There is mitral valve leaflet thickening. There is mild tricuspid regurgitation. The right ventricular systolic pressure is elevated at 44 mm of Mercury. The pulmonic valve is not well visualized. The aortic root is normal at 2.9 cm. IMPRESSION: 1) NORMAL CONTRACTILITY OF THE LEFT VENTRICLE. 2) MODERATE ASYMMETRIC LEFT VENTRICULAR HYPERTROPHY. 3) EVIDENCE OF IMPAIRED LEFT VENTRICULAR RELAXATION. 4) MILD TRICUSPID REGURGITATION. 5) MODERATE PULONARY HYPERTENSION.
[2019-02-14] MEDS: NovoLOG Insulin SQ PRN (08:20)
[2019-02-14 08:34] VITALS: BP 119/64; PULSE 68
--- NOTE | 2019-02-14 08:53 | PCM.DCORD ---
- Discharge Discharge Date: 02/14/19 Disposition: Home, Self-Care Condition: Good Prescriptions: New Amiodarone HCl 200 mg [Cordarone 200 MG] 200 mg PO DAILY #30 tab Apixaban [Eliquis] 5 mg PO BID #60 tablet levoFLOXacin [Levofloxacin] 750 mg PO DAILY #4 tablet Metformin HCl [Metformin ER Gastric] 2 tab PO BID #120 [id number] Blood-Glucose Meter [Accu-Chek Halina Plus] 1 each MC BID #1 each Lancets [Accu-Chek Softclix] 1 each MC BID #100 each Lancing Device/Lancets [Accu-Check Softclix Lancet Kit] 1 each MC BID #1 kit Blood Sugar Diagnostic [Test Strips] 1 each MC BID #100 strip Changed Losartan Potassium 1 tablet PO DAILY #30 tablet Discontinued Metformin HCl Instructions: Atrial Fibrillation (DC), Amiodarone Follow up with: Maikel Isbell MD [CONSULTING PHYSICIAN] - 1 Week AMARI SHELTON [ACTIVE STAFF] - 1 Week Forms: Work/School Release Form
[2019-02-14] MEDS: Cordarone 200 MG PO SCH (09:18)
[2019-02-14 13:14] LABS: Mitogen >10.00 IU/mL; NIL 0.07 IU/mL; TB1-NIL <0.01 IU/mL (<=0.34); TB2-NIL <0.01 IU/mL (<=0.34)
[2019-02-14 18:51] LABS: Quantiferon Gold TB Negative (Negative)
--- NOTE | 2019-02-15 14:15 | DS ---
DISCHARGE DIAGNOSES: 1) PAROXYSMAL ATRIAL FIBRILLATION. 2) SEPSIS. 3) URINARY TRACT INFECTION. 4) HYPERTENSION. 5) UNCONTROLLED DIABETES MELLITUS TYPE 2. 6) ELEVATED LIVER FUNCTION TEST. DISCHARGE PHYSICAL EXAMINATION: VITALS: Temperature current 98.4F, temperature max 99.6F, heart rate 68, respiratory rate 18, blood pressure 119/64. Oxygen saturation 95% on room air. GENERAL: The patient is pleasant lady lying in bed in no acute distress. CVS: She has a regular rate and rhythm. No murmurs, gallops or rubs are appreciated. CHEST: Clear to auscultation bilaterally. No crackles or wheezes. ABDOMEN: Soft, nontender, nondistended with normal bowel sounds. EXTREMITIES: No clubbing, cyanosis or edema. SKIN: Warm, dry and intact. No rashes. 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 She had a rapid response called and was given Cardizem and metoprolol, continued to still have elevated heart rate and so under the direction of supervisor computer operations, Dr. Clay, an amiodarone drip was started. This was changed over to oral amiodarone by Dr. Cm who was correctional facility nurse later that day. The patient was stable from that point forward. The supervisor computer operations was able to see her over tele-medicine the day before discharge and recommended continuing with amiodarone 200 mg daily. He recommended losartan 50 mg daily, Eliquis 5 mg p.o. b.i.d. I had a long discussion with her the day before discharge about the risks and benefits of Eliquis. Please see my Progress Note for that. She understood these and wanted to proceed with Eliquis. 2) SEPSIS: She had a urine culture that grew Escherichia coli 30,000 to 40,000 colony forming units that was susceptible to ceftriaxone which is what she was placed on initially as well as Zosyn which is what she was changed to when she developed the atrial fibrillation with rapid ventricular response, that was actually added to the ceftriaxone and then Dr. Cm changed to her levofloxacin earlier in the morning of 02/12/2019. She continued on the levofloxacin as that can be changed to oral medication easily that she could take at home. Her white blood cell count responded and at the time of discharge was normal at 9.8. 3) URINARY TRACT INFECTION: Treatment as above. 4) HYPERTENSION: She reported she was on losartan at home but did not know what dose. The supervisor computer operations recommended 50 mg but as her blood pressure was sometimes on the lower end of normal, I discharged her on 25 mg daily. 5) UNCONTROLLED DIABETES MELLITUS TYPE 2: The patient reported no medication or meter at home so she was discharged with a meter to use at home and Metformin 2 gm daily total dose. She was on Lantus sliding scale while she was here. 6) ELEVATED LIVER FUNCTION TEST: These were slightly elevated on admission and hepatitis panel for A, B and C were checked and was negative. DISPOSITION: The patient was discharged to home in fair condition to follow up with myself as well as the supervisor computer operations. The patient's questions were answered via the diplomatic interpreter. Discharge planning noted that Tiffany is going to help with her medication.
== END 2019-02-14 09:55 | disposition home or self-care (01) | DRG 308 ==
LOC: ED 14:12 → ICU 19:45
PROVIDERS: ADMIT Internal Medicine; ATTEND Internal Medicine
DX: I48.0 Paroxysmal atrial fibrillation (principal); A41.9 Sepsis, unspecified organism; N39.0 Urinary tract infection, site not specified; B96.20 Unspecified Escherichia coli [E. coli] as the cause of diseases classified elsewhere; I10 Essential (primary) hypertension; I25.10 Atherosclerotic heart disease of native coronary artery without angina pectoris; Z79.899 Other long term (current) drug therapy; E11.65 Type 2 diabetes mellitus with hyperglycemia; R94.5 Abnormal results of liver function studies; D72.829 Elevated white blood cell count, unspecified
CPT/HCPCS: 36000; 36415; 71046; 71250; 80048; 80053; 80074; 81001; 82962; 83036; 83605; 83735; 83880; 84132; 84443; 84484; 84703; 85025; 85379; 86480; 87040; 87077; 87086; 87186; 93005; 93306; 94760; 96360; 96361; 96365; 99285; J0282; J0696; J1650; J1956; J2543; J3480; Q3014; A9270-GY